=== PATIENT | female | born 1950 | race African-American/Black ===

== ENCOUNTER 2021-03-15 22:49 | Inpatient (IN) | payer OTHER ==
[2021-03-15] MEDS ORDERED: PIPERACILLIN/TAZOB 4.5 GM 4.5 GM in DEXTROSE 5%-WATER 100 ML IVPB ONE (23:39)
[2021-03-15] MEDS ORDERED: VANCOMYCIN 1 GM in D5W (PRE-DOCKED) 1,000 MG/250 ML IVPB ONE (23:40)
[2021-03-15] MEDS ORDERED: SODIUM CHLORIDE 0.9% 500 ML INFUS.BAG IV ONE (23:49)
[2021-03-16 01:08] LABS: EPI CELLS 10 /uL (0-25.1); HYALINE CASTS 1 /uL (0-3.1); PH,URINE 7.5 (5.0-8.0); URINE APPEARANCE CLOUDY; URINE BACTERIA 7 /uL (0-1359); URINE BILIRUBIN NEGATIVE (NEGATIVE); URINE COLOR DK YELLOW; URINE GLUCOSE (UA) NEGATIVE (NEGATIVE); URINE KETONE NEGATIVE (NEGATIVE); URINE LEUK ESTERASE TRACE (NEGATIVE); URINE NITRITE NEGATIVE (NEGATIVE); URINE PROTEIN TRACE (NEGATIVE); URINE RBC 13 /uL (0-23.9); URINE WBC 10 /uL (0-25.8)
[2021-03-16 01:16] LABS: VENOUS BASE EXCESS 9.9 mmol/L (-2-2); VENOUS O2 SATURATION 48.3 % (70-80); VENOUS PCO2 56.7 mmHg (38-52); VENOUS PH 7.417 (7.310-7.410)
[2021-03-16] MEDS ORDERED: PIPERACILLIN/TAZOB 4.5 GM 4.5 GM/100 ML BAG IVPB ONE (01:21)
[2021-03-16 01:22] LABS: LACTIC ACID 2.1 mmol/L (0.4-2.0)
[2021-03-16] MEDS ORDERED: VANCOMYCIN 1 GRAM (PRE-DOCKED) 1,000 MG/250 ML BAG IVPB ONE (01:22)
[2021-03-16 01:25] LABS: BASO % 0.5 % (0-2.0); EOS % 1.3 % (0-4.5); HEMATOCRIT 26.3 % (32.4-45.2); HEMOGLOBIN 8.2 GM/dL (10.7-15.3); LYMPH % 31.9 % (8-40); MCH 25.2 pg (25.7-33.7); MCHC 31.2 g/dl (32.0-36.0); MEAN PLT VOLUME 8.6 fl (7.5-11.1); MONO % 8.5 % (3.8-10.2); NEUT % 57.8 % (42.8-82.8); PLATELET COUNT 350 10^3/uL (134-434); RBC 3.24 M/mm3 (3.60-5.2); RDW 19.6 % (11.6-15.6); WHITE BLOOD COUNT 9.2 K/mm3 (4.0-10.0)
[2021-03-16 01:54] LABS: INR 1.25 (0.83-1.09); PROTHROMBIN TIME (PATIENT) 14.4 SEC (9.7-13.0)
[2021-03-16 01:57] LABS: ACTIVATED PTT 28.5 SECONDS (25.2-36.5); CHLORIDE 98 mmol/L (98-107); SODIUM 138 mmol/L (136-145)
[2021-03-16 02:00] LABS: CALCIUM 10.4 mg/dL (8.5-10.1)
[2021-03-16 02:01] LABS: ALBUMIN 2.3 g/dl (3.4-5.0); BLOOD UREA NITROGEN 25.5 mg/dL (7-18); GLUCOSE,RANDOM 91 mg/dL (74-106)
[2021-03-16 02:03] LABS: CREATININE 0.5 mg/dL (0.55-1.3); SGPT/ALT 33 U/L (13-61)
[2021-03-16 02:05] LABS: BILIRUBIN,TOTAL 0.9 mg/dL (0.2-1); SGOT/AST 35 U/L (15-37)
[2021-03-16 02:06] LABS: TOT PROT 7.7 g/dl (6.4-8.2)
[2021-03-16 02:07] LABS: ALK PHOS 106 U/L (45-117)
[2021-03-16 02:13] LABS: ANION GAP 8 MMOL/L (8-16); CO2 33 mmol/L (21-32)
[2021-03-16] MEDS ORDERED: SODIUM CHLORIDE 0.9% 500 ML INFUS.BAG IV ONE (03:34)
[2021-03-16] MEDS ORDERED: ACETAMINOPHEN 1000 MG/100 ML BAG IVPB ONE (04:16)
[2021-03-16] MEDS ORDERED: ACETAMINOPHEN INJECTION 100 ML IVPB ONE (04:38)
[2021-03-16] MEDS: METOPROLOL TARTRATE 5 MG/5 ML VIAL IVPUSH PRN ×2 (04:46→09:55)
[2021-03-16 05:11] LABS: LACTIC ACID 2.2 mmol/L (0.4-2.0)
[2021-03-16] MEDS ORDERED: METOPROLOL TARTRATE 50 MG TABLET (FP) ONE (07:04)
[2021-03-16] MEDS: METOPROLOL TARTRATE 50 MG TABLET (FP) GT SCH ×3 (07:05→23:06)
[2021-03-16 07:47] LABS: HEMATOCRIT 26.6 % (32.4-45.2); HEMOGLOBIN 8.2 GM/dL (10.7-15.3); MCH 25.1 pg (25.7-33.7); MCHC 30.7 g/dl (32.0-36.0); MEAN CELL VOLUME 81.8 fl (80-96); MEAN PLT VOLUME 8.8 fl (7.5-11.1); PLATELET COUNT 365 10^3/uL (134-434); RBC 3.25 M/mm3 (3.60-5.2); RDW 19.5 % (11.6-15.6); WHITE BLOOD COUNT 10.7 K/mm3 (4.0-10.0)
[2021-03-16 08:14] LABS: ALBUMIN 2.1 g/dl (3.4-5.0); BLOOD UREA NITROGEN 24.6 mg/dL (7-18); CREATININE 0.6 mg/dL (0.55-1.3)
[2021-03-16 08:16] LABS: BILIRUBIN,TOTAL 0.6 mg/dL (0.2-1); CALCIUM 10.3 mg/dL (8.5-10.1); TOT PROT 7.3 g/dl (6.4-8.2)
[2021-03-16] MEDS ORDERED: PIPERACILLIN/TAZOBACTAM 4.5 GM VIAL IVPB ONE ×2 (09:42→17:36)
[2021-03-16] MEDS ORDERED: DEXTROSE 5%-WATER 100 ML IVPB ONE ×2 (09:43→17:36)
[2021-03-16] MEDS: HEPARIN NA (PORCINE) 5,000 UNITS/ML 1ML VIAL SQ SCH ×2 (09:56→23:05)
[2021-03-16] MEDS: ASCORBIC ACID 500 MG TABLET (FP) GT SCH ×2 (09:57→23:06)
[2021-03-16] MEDS: FOLIC ACID 1 MG TABLET (FP) GT SCH (09:57)
[2021-03-16] MEDS: FAMOTIDINE 40 MG/5 ML ORAL SUSPENSION PEG SCH (09:58)
[2021-03-16] MEDS ORDERED: PIPERACILLIN/TAZOB 4.5 GM 4.5 GM in DEXTROSE 5%-WATER 100 ML IVPB SCH (10:00)
[2021-03-16 10:13] LABS: ANISOCYTOSIS 1+; OVALOCYTE 1+; PLATELET ESTIMATE NORMAL
[2021-03-16] MEDS ORDERED: ACETAMINOPHEN 650 MG/20.3 ML ORAL SOLUTION (CUPS) GT PRN (11:00)
[2021-03-16] MEDS: VANCOMYCIN 1 GRAM (PRE-DOCKED) 1,000 MG/250 ML BAG IVPB SCH ×2 (12:47→23:06)
[2021-03-16] MEDS ORDERED: VANCOMYCIN/WATER BAGS 1,250 MG/250 ML BAG IVPB SCH (14:00)
[2021-03-16] MEDS: SODIUM CHLORIDE 0.45% 1,000 ML IV SCH (15:09)
[2021-03-16] MEDS ORDERED: DIGOXIN 0.5 MG/2 ML AMPUL IVPUSH ONE (15:54)
[2021-03-16] MEDS: PIPERACILLIN/TAZOB 4.5 GM 4.5 GM in DEXTROSE 5%-WATER 100 ML IVPB SCH (17:40)
[2021-03-16] MEDS: ATORVASTATIN CA 40 MG TABLET (FP) GT SCH (23:06)
[2021-03-17] MEDS ORDERED: DEXTROSE 5%-WATER 100 ML IVPB ONE ×3 (01:28→18:13)
[2021-03-17] MEDS ORDERED: PIPERACILLIN/TAZOBACTAM 4.5 GM VIAL IVPB ONE ×3 (01:28→18:13)
[2021-03-17] MEDS: PIPERACILLIN/TAZOB 4.5 GM 4.5 GM in DEXTROSE 5%-WATER 100 ML IVPB SCH ×3 (01:36→18:40)
[2021-03-17] MEDS: METOPROLOL TARTRATE 50 MG TABLET (FP) GT SCH ×3 (06:43→21:32)
[2021-03-17] MEDS: HEPARIN NA (PORCINE) 5,000 UNITS/ML 1ML VIAL SQ SCH ×2 (09:21→21:11)
[2021-03-17] MEDS: FOLIC ACID 1 MG TABLET (FP) GT SCH (09:21)
[2021-03-17] MEDS: FAMOTIDINE 40 MG/5 ML ORAL SUSPENSION PEG SCH (09:21)
[2021-03-17] MEDS: ASCORBIC ACID 500 MG TABLET (FP) GT SCH ×2 (09:21→21:11)
[2021-03-17] MEDS ORDERED: PIPERACILLIN/TAZOB 4.5 GM 4.5 GM in DEXTROSE 5%-WATER 100 ML IVPB SCH (10:00)
[2021-03-17] MEDS ORDERED: DIGOXIN 0.5 MG/2 ML AMPUL IVPUSH ONE (11:00)
[2021-03-17] MEDS: VANCOMYCIN 1 GRAM (PRE-DOCKED) 1,000 MG/250 ML BAG IVPB SCH ×2 (12:17→23:37)
[2021-03-17] MEDS ORDERED: VANCOMYCIN/WATER BAGS 1,250 MG/250 ML BAG IVPB SCH (14:00)
[2021-03-17] MEDS: SODIUM CHLORIDE 0.45% 1,000 ML IV SCH (15:58)
[2021-03-17 19:08] LABS: BASO % 0.3 % (0-2.0); EOS % 0.7 % (0-4.5); HEMATOCRIT 23.3 % (32.4-45.2); HEMOGLOBIN 7.2 GM/dL (10.7-15.3); LYMPH % 14.8 % (8-40); MCH 24.5 pg (25.7-33.7); MCHC 30.8 g/dl (32.0-36.0); MEAN CELL VOLUME 79.4 fl (80-96); MEAN PLT VOLUME 7.7 fl (7.5-11.1); MONO % 5.5 % (3.8-10.2); NEUT % 78.7 % (42.8-82.8); PLATELET COUNT 401 10^3/uL (134-434); RBC 2.94 M/mm3 (3.60-5.2); RDW 19.3 % (11.6-15.6); WHITE BLOOD COUNT 12.2 K/mm3 (4.0-10.0)
[2021-03-17 19:39] LABS: ALBUMIN 1.8 g/dl (3.4-5.0); BLOOD UREA NITROGEN 19.9 mg/dL (7-18); CALCIUM 9.4 mg/dL (8.5-10.1)
[2021-03-17 19:44] LABS: BILIRUBIN,TOTAL 0.7 mg/dL (0.2-1); CREATININE 0.6 mg/dL (0.55-1.3); TOT PROT 6.6 g/dl (6.4-8.2)
[2021-03-17] MEDS: ATORVASTATIN CA 40 MG TABLET (FP) GT SCH (21:11)
[2021-03-18] MEDS ORDERED: PIPERACILLIN/TAZOBACTAM 4.5 GM VIAL IVPB ONE ×3 (04:05→18:09)
[2021-03-18] MEDS ORDERED: DEXTROSE 5%-WATER 100 ML IVPB ONE ×3 (04:06→18:09)
[2021-03-18] MEDS: PIPERACILLIN/TAZOB 4.5 GM 4.5 GM in DEXTROSE 5%-WATER 100 ML IVPB SCH ×3 (04:10→18:12)
[2021-03-18] MEDS: METOPROLOL TARTRATE 50 MG TABLET (FP) GT SCH ×3 (06:23→22:29)
[2021-03-18 08:08] LABS: BASO % 0.5 % (0-2.0); EOS % 2.7 % (0-4.5); HEMOGLOBIN 7.7 GM/dL (10.7-15.3); MCHC 30.7 g/dl (32.0-36.0); MEAN CELL VOLUME 81.3 fl (80-96); MEAN PLT VOLUME 8.5 fl (7.5-11.1); MONO % 8.8 % (3.8-10.2); PLATELET COUNT 349 10^3/uL (134-434); RBC 3.08 M/mm3 (3.60-5.2); RDW 19.2 % (11.6-15.6); WHITE BLOOD COUNT 8.3 K/mm3 (4.0-10.0)
[2021-03-18 08:30] LABS: ALBUMIN 1.8 g/dl (3.4-5.0); BLOOD UREA NITROGEN 18.9 mg/dL (7-18); CALCIUM 9.3 mg/dL (8.5-10.1)
[2021-03-18 08:33] LABS: CREATININE 0.6 mg/dL (0.55-1.3)
[2021-03-18 08:36] LABS: BILIRUBIN,TOTAL 0.6 mg/dL (0.2-1); TOT PROT 6.6 g/dl (6.4-8.2)
[2021-03-18] MEDS: DIGOXIN 0.125 MG TABLET PO SCH ×2 (10:00→10:45)
[2021-03-18] MEDS: KCL 10 MEQ IVPB 10 MEQ/100 ML INFUS.BAG IVPB SCH ×2 (10:07→12:00)
[2021-03-18] MEDS: FOLIC ACID 1 MG TABLET (FP) GT SCH (10:24)
[2021-03-18] MEDS: HEPARIN NA (PORCINE) 5,000 UNITS/ML 1ML VIAL SQ SCH ×2 (10:24→22:28)
[2021-03-18] MEDS: FAMOTIDINE 40 MG/5 ML ORAL SUSPENSION PEG SCH (10:26)
[2021-03-18] MEDS: ASCORBIC ACID 500 MG TABLET (FP) GT SCH ×2 (10:27→22:29)
[2021-03-18] MEDS: VANCOMYCIN 1 GRAM (PRE-DOCKED) 1,000 MG/250 ML BAG IVPB SCH ×2 (12:44→23:24)
[2021-03-18 14:55] VITALS: BMI 30.3
[2021-03-18] MEDS ORDERED: POTASSIUM CHLORIDE ORAL LIQUID 20 MEQ/15 ML PO ONE (15:22)
[2021-03-18] MEDS: AMINO ACIDS/PROTEIN HYDROLYS 30 ML LIQUID.PKT PO SCH (18:12)
[2021-03-18] MEDS: COLLAGENASE CLOSTRIDIUM HIST. 30 GRAMS TUBE TP SCH (18:12)
[2021-03-18] MEDS: ATORVASTATIN CA 40 MG TABLET (FP) GT SCH (22:28)
[2021-03-19] MEDS ORDERED: PIPERACILLIN/TAZOBACTAM 4.5 GM VIAL IVPB ONE ×3 (02:01→16:01)
[2021-03-19] MEDS ORDERED: DEXTROSE 5%-WATER 100 ML IVPB ONE ×3 (02:01→16:02)
[2021-03-19] MEDS: PIPERACILLIN/TAZOB 4.5 GM 4.5 GM in DEXTROSE 5%-WATER 100 ML IVPB SCH ×3 (02:18→17:45)
[2021-03-19] MEDS: METOPROLOL TARTRATE 50 MG TABLET (FP) GT SCH ×3 (07:27→21:01)
[2021-03-19] MEDS: AMINO ACIDS/PROTEIN HYDROLYS 30 ML LIQUID.PKT PO SCH ×2 (09:47→17:45)
[2021-03-19] MEDS: FOLIC ACID 1 MG TABLET (FP) GT SCH (09:48)
[2021-03-19] MEDS: HEPARIN NA (PORCINE) 5,000 UNITS/ML 1ML VIAL SQ SCH ×2 (09:48→21:03)
[2021-03-19] MEDS: FAMOTIDINE 40 MG/5 ML ORAL SUSPENSION PEG SCH (09:48)
[2021-03-19] MEDS: DIGOXIN 250 MCG/5 ML LIQUID PO SCH (09:49)
[2021-03-19] MEDS: ASCORBIC ACID 500 MG TABLET (FP) GT SCH ×2 (09:49→21:02)
[2021-03-19] MEDS: COLLAGENASE CLOSTRIDIUM HIST. 30 GRAMS TUBE TP SCH (09:50)
[2021-03-19] MEDS: VANCOMYCIN 1 GRAM (PRE-DOCKED) 1,000 MG/250 ML BAG IVPB SCH ×2 (11:45→22:34)
[2021-03-19] MEDS: ATORVASTATIN CA 40 MG TABLET (FP) GT SCH (21:02)
[2021-03-20] MEDS ORDERED: PIPERACILLIN/TAZOBACTAM 4.5 GM VIAL IVPB ONE ×3 (01:01→16:51)
[2021-03-20] MEDS ORDERED: DEXTROSE 5%-WATER 100 ML IVPB ONE ×3 (01:01→16:51)
[2021-03-20] MEDS: PIPERACILLIN/TAZOB 4.5 GM 4.5 GM in DEXTROSE 5%-WATER 100 ML IVPB SCH ×3 (01:07→17:05)
[2021-03-20] MEDS: METOPROLOL TARTRATE 50 MG TABLET (FP) GT SCH ×3 (05:47→21:30)
[2021-03-20 06:49] LABS: BASO % 0.5 % (0-2.0); EOS % 2.2 % (0-4.5); HEMATOCRIT 25.2 % (32.4-45.2); HEMOGLOBIN 7.7 GM/dL (10.7-15.3); LYMPH % 35.9 % (8-40); MCH 24.9 pg (25.7-33.7); MCHC 30.6 g/dl (32.0-36.0); MEAN CELL VOLUME 81.4 fl (80-96); MEAN PLT VOLUME 8.3 fl (7.5-11.1); NEUT % 53.4 % (42.8-82.8); PLATELET COUNT 423 10^3/uL (134-434); RDW 19.3 % (11.6-15.6); WHITE BLOOD COUNT 9.7 K/mm3 (4.0-10.0)
[2021-03-20 07:14] LABS: CALCIUM 9.1 mg/dL (8.5-10.1)
[2021-03-20 07:15] LABS: ALBUMIN 1.9 g/dl (3.4-5.0); BLOOD UREA NITROGEN 17.6 mg/dL (7-18)
[2021-03-20 07:18] LABS: CREATININE 0.6 mg/dL (0.55-1.3)
[2021-03-20 07:19] LABS: BILIRUBIN,TOTAL 0.3 mg/dL (0.2-1); TOT PROT 6.6 g/dl (6.4-8.2)
[2021-03-20] MEDS ORDERED: POTASSIUM CHLORIDE ORAL LIQUID 20 MEQ/15 ML GT ONE (10:10)
[2021-03-20] MEDS: HEPARIN NA (PORCINE) 5,000 UNITS/ML 1ML VIAL SQ SCH ×2 (10:18→21:30)
[2021-03-20] MEDS: FAMOTIDINE 40 MG/5 ML ORAL SUSPENSION PEG SCH (10:22)
[2021-03-20] MEDS: AMINO ACIDS/PROTEIN HYDROLYS 30 ML LIQUID.PKT PO SCH ×2 (10:22→16:54)
[2021-03-20] MEDS: ASCORBIC ACID 500 MG TABLET (FP) GT SCH ×2 (10:22→21:31)
[2021-03-20] MEDS: DIGOXIN 250 MCG/5 ML LIQUID PO SCH (10:23)
[2021-03-20] MEDS: FOLIC ACID 1 MG TABLET (FP) GT SCH (10:23)
[2021-03-20] MEDS: COLLAGENASE CLOSTRIDIUM HIST. 30 GRAMS TUBE TP SCH (14:00)
[2021-03-20] MEDS: ATORVASTATIN CA 40 MG TABLET (FP) GT SCH (21:30)
[2021-03-21] MEDS ORDERED: PIPERACILLIN/TAZOBACTAM 4.5 GM VIAL IVPB ONE ×4 (00:15→16:05)
[2021-03-21] MEDS ORDERED: DEXTROSE 5%-WATER 100 ML IVPB ONE ×4 (00:16→16:06)
[2021-03-21] MEDS: PIPERACILLIN/TAZOB 4.5 GM 4.5 GM in DEXTROSE 5%-WATER 100 ML IVPB SCH ×3 (00:59→17:52)
[2021-03-21] MEDS: METOPROLOL TARTRATE 50 MG TABLET (FP) GT SCH ×3 (05:32→21:06)
[2021-03-21 07:18] LABS: HEMATOCRIT 23.8 % (32.4-45.2); HEMOGLOBIN 7.4 GM/dL (10.7-15.3); MCH 25.2 pg (25.7-33.7); MCHC 31.1 g/dl (32.0-36.0); MEAN PLT VOLUME 7.9 fl (7.5-11.1); PLATELET COUNT 424 10^3/uL (134-434); RBC 2.93 M/mm3 (3.60-5.2); RDW 19.1 % (11.6-15.6); WHITE BLOOD COUNT 8.5 K/mm3 (4.0-10.0)
[2021-03-21 07:54] LABS: BLOOD UREA NITROGEN 20.5 mg/dL (7-18); CALCIUM 9.2 mg/dL (8.5-10.1)
[2021-03-21 07:57] LABS: PHOSPHOROUS 3.7 mg/dL (2.5-4.9)
[2021-03-21 07:58] LABS: CREATININE 0.6 mg/dL (0.55-1.3)
[2021-03-21] MEDS: HEPARIN NA (PORCINE) 5,000 UNITS/ML 1ML VIAL SQ SCH ×2 (11:01→21:04)
[2021-03-21] MEDS: AMINO ACIDS/PROTEIN HYDROLYS 30 ML LIQUID.PKT PO SCH ×2 (11:01→17:52)
[2021-03-21] MEDS: FOLIC ACID 1 MG TABLET (FP) GT SCH (11:01)
[2021-03-21] MEDS: COLLAGENASE CLOSTRIDIUM HIST. 30 GRAMS TUBE TP SCH (11:03)
[2021-03-21] MEDS: DIGOXIN 250 MCG/5 ML LIQUID PO SCH (11:03)
[2021-03-21] MEDS: ASCORBIC ACID 500 MG TABLET (FP) GT SCH ×2 (11:03→21:05)
[2021-03-21] MEDS: FAMOTIDINE 40 MG/5 ML ORAL SUSPENSION PEG SCH (11:03)
[2021-03-21] MEDS: ATORVASTATIN CA 40 MG TABLET (FP) GT SCH (21:05)
[2021-03-22] MEDS ORDERED: PIPERACILLIN/TAZOBACTAM 4.5 GM VIAL IVPB ONE ×3 (01:35→17:17)
[2021-03-22] MEDS ORDERED: DEXTROSE 5%-WATER 100 ML IVPB ONE ×3 (01:35→17:17)
[2021-03-22] MEDS: PIPERACILLIN/TAZOB 4.5 GM 4.5 GM in DEXTROSE 5%-WATER 100 ML IVPB SCH ×3 (02:14→17:41)
[2021-03-22] MEDS: METOPROLOL TARTRATE 50 MG TABLET (FP) GT SCH ×3 (06:06→21:22)
[2021-03-22 07:23] LABS: HEMATOCRIT 23.8 % (32.4-45.2); HEMOGLOBIN 7.3 GM/dL (10.7-15.3); MCH 24.8 pg (25.7-33.7); MCHC 30.5 g/dl (32.0-36.0); MEAN CELL VOLUME 81.3 fl (80-96); MEAN PLT VOLUME 7.8 fl (7.5-11.1); PLATELET COUNT 482 10^3/uL (134-434); RBC 2.93 M/mm3 (3.60-5.2); RDW 19.3 % (11.6-15.6); WHITE BLOOD COUNT 9.1 K/mm3 (4.0-10.0)
[2021-03-22 07:55] LABS: CALCIUM 9.4 mg/dL (8.5-10.1)
[2021-03-22 07:56] LABS: ALBUMIN 1.8 g/dl (3.4-5.0); MAGNESIUM 1.9 mg/dL (1.8-2.4)
[2021-03-22 07:59] LABS: CREATININE 0.5 mg/dL (0.55-1.3)
[2021-03-22 08:00] LABS: BILIRUBIN,TOTAL 0.3 mg/dL (0.2-1)
[2021-03-22 08:01] LABS: TOT PROT 6.6 g/dl (6.4-8.2)
[2021-03-22] MEDS: AMINO ACIDS/PROTEIN HYDROLYS 30 ML LIQUID.PKT PO SCH ×2 (09:00→17:41)
[2021-03-22] MEDS ORDERED: IRON SUCROSE INJECTION 200 MG in SODIUM CHLORIDE 90 ML IVPB ONE (10:00)
[2021-03-22] MEDS: ASCORBIC ACID 500 MG TABLET (FP) GT SCH ×2 (10:09→21:22)
[2021-03-22] MEDS: FOLIC ACID 1 MG TABLET (FP) GT SCH (10:10)
[2021-03-22] MEDS: HEPARIN NA (PORCINE) 5,000 UNITS/ML 1ML VIAL SQ SCH ×2 (10:10→21:21)
[2021-03-22] MEDS: FAMOTIDINE 40 MG/5 ML ORAL SUSPENSION PEG SCH (10:14)
[2021-03-22] MEDS: DIGOXIN 250 MCG/5 ML LIQUID PO SCH (10:33)
[2021-03-22] MEDS: COLLAGENASE CLOSTRIDIUM HIST. 30 GRAMS TUBE TP SCH (11:12)
[2021-03-22] MEDS ORDERED: ALBUTEROL SO4 0.083% IH SOL 2.5 MG/3 ML VIAL.NEB. NEB ONE (16:59)
[2021-03-22] MEDS ORDERED: ACETYLCYSTEINE 20% 200MG/ML 4 ML VIAL *FOR ORAL / INH USE ONLY NEB ONE (16:59)
[2021-03-22] MEDS: ATORVASTATIN CA 40 MG TABLET (FP) GT SCH (21:22)
[2021-03-23] MEDS ORDERED: PIPERACILLIN/TAZOBACTAM 4.5 GM VIAL IVPB ONE ×2 (01:18→09:51)
[2021-03-23] MEDS ORDERED: DEXTROSE 5%-WATER 100 ML IVPB ONE ×2 (01:19→09:51)
[2021-03-23] MEDS: PIPERACILLIN/TAZOB 4.5 GM 4.5 GM in DEXTROSE 5%-WATER 100 ML IVPB SCH ×2 (02:36→10:17)
[2021-03-23] MEDS: METOPROLOL TARTRATE 50 MG TABLET (FP) GT SCH ×3 (05:38→23:09)
[2021-03-23 07:48] LABS: CALCIUM 9.9 mg/dL (8.5-10.1)
[2021-03-23 07:49] LABS: BLOOD UREA NITROGEN 22.4 mg/dL (7-18)
[2021-03-23 07:50] LABS: BASO % 0.4 % (0-2.0); EOS % 3.6 % (0-4.5); HEMATOCRIT 26.6 % (32.4-45.2); LYMPH % 32.1 % (8-40); MCH 24.6 pg (25.7-33.7); MEAN PLT VOLUME 8.1 fl (7.5-11.1); MONO % 7.6 % (3.8-10.2); NEUT % 56.3 % (42.8-82.8); PLATELET COUNT 511 10^3/uL (134-434); RBC 3.24 M/mm3 (3.60-5.2); RDW 19.1 % (11.6-15.6); WHITE BLOOD COUNT 11.4 K/mm3 (4.0-10.0)
[2021-03-23 07:51] LABS: CREATININE 0.6 mg/dL (0.55-1.3)
[2021-03-23 07:53] LABS: BILIRUBIN,TOTAL 0.3 mg/dL (0.2-1); TOT PROT 7.2 g/dl (6.4-8.2)
[2021-03-23] MEDS: AMINO ACIDS/PROTEIN HYDROLYS 30 ML LIQUID.PKT PO SCH ×2 (08:00→17:23)
[2021-03-23] MEDS: COLLAGENASE CLOSTRIDIUM HIST. 30 GRAMS TUBE TP SCH (10:18)
[2021-03-23] MEDS: ASCORBIC ACID 500 MG TABLET (FP) GT SCH ×2 (10:18→23:09)
[2021-03-23] MEDS: FOLIC ACID 1 MG TABLET (FP) GT SCH (10:18)
[2021-03-23] MEDS: DIGOXIN 250 MCG/5 ML LIQUID PO SCH (11:40)
[2021-03-23] MEDS: FAMOTIDINE 40 MG/5 ML ORAL SUSPENSION PEG SCH (11:40)
[2021-03-23] MEDS: ATORVASTATIN CA 40 MG TABLET (FP) GT SCH (23:09)
[2021-03-24] MEDS: METOPROLOL TARTRATE 50 MG TABLET (FP) GT SCH ×3 (06:57→22:00)
[2021-03-24] MEDS: DIGOXIN 250 MCG/5 ML LIQUID PO SCH (08:59)
[2021-03-24] MEDS: COLLAGENASE CLOSTRIDIUM HIST. 30 GRAMS TUBE TP SCH (08:59)
[2021-03-24] MEDS: AMINO ACIDS/PROTEIN HYDROLYS 30 ML LIQUID.PKT PO SCH ×2 (08:59→17:53)
[2021-03-24] MEDS: FAMOTIDINE 40 MG/5 ML ORAL SUSPENSION PEG SCH (08:59)
[2021-03-24] MEDS: FOLIC ACID 1 MG TABLET (FP) GT SCH (08:59)
[2021-03-24] MEDS: ASCORBIC ACID 500 MG TABLET (FP) GT SCH ×2 (09:00→22:01)
[2021-03-24] MEDS: ATORVASTATIN CA 40 MG TABLET (FP) GT SCH (22:01)
[2021-03-25] MEDS: METOPROLOL TARTRATE 50 MG TABLET (FP) GT SCH ×3 (06:39→21:55)
[2021-03-25 07:36] LABS: BASO % 0.6 % (0-2.0); EOS % 3.2 % (0-4.5); HEMATOCRIT 26.5 % (32.4-45.2); LYMPH % 31.5 % (8-40); MCH 25.5 pg (25.7-33.7); MCHC 30.1 g/dl (32.0-36.0); MEAN CELL VOLUME 84.8 fl (80-96); MONO % 8.1 % (3.8-10.2); NEUT % 56.6 % (42.8-82.8); PLATELET COUNT 252 10^3/uL (134-434); RBC 3.12 M/mm3 (3.60-5.2); RDW 20.1 % (11.6-15.6); WHITE BLOOD COUNT 7.8 K/mm3 (4.0-10.0)
[2021-03-25 07:41] LABS: ALBUMIN 1.9 g/dl (3.4-5.0); BLOOD UREA NITROGEN 21.7 mg/dL (7-18)
[2021-03-25 07:44] LABS: CREATININE 0.6 mg/dL (0.55-1.3)
[2021-03-25 07:46] LABS: BILIRUBIN,TOTAL 0.3 mg/dL (0.2-1); TOT PROT 6.7 g/dl (6.4-8.2)
[2021-03-25] MEDS: AMINO ACIDS/PROTEIN HYDROLYS 30 ML LIQUID.PKT PO SCH ×2 (08:33→17:41)
[2021-03-25] MEDS: FOLIC ACID 1 MG TABLET (FP) GT SCH (09:16)
[2021-03-25] MEDS: ASCORBIC ACID 500 MG TABLET (FP) GT SCH ×2 (09:16→21:55)
[2021-03-25] MEDS: FAMOTIDINE 40 MG/5 ML ORAL SUSPENSION PEG SCH (09:16)
[2021-03-25] MEDS: COLLAGENASE CLOSTRIDIUM HIST. 30 GRAMS TUBE TP SCH (09:16)
[2021-03-25] MEDS: DIGOXIN 250 MCG/5 ML LIQUID PO SCH (09:16)
[2021-03-25] MEDS ORDERED: SCOPOLAMINE HYDROBROMIDE 1 PATCH PATCH.TD72 TD SCH (13:15)
[2021-03-25] MEDS: ATORVASTATIN CA 40 MG TABLET (FP) GT SCH (21:55)
[2021-03-26] MEDS: METOPROLOL TARTRATE 50 MG TABLET (FP) GT SCH ×2 (07:09→16:00)
[2021-03-26] MEDS: COLLAGENASE CLOSTRIDIUM HIST. 30 GRAMS TUBE TP SCH (09:45)
[2021-03-26] MEDS: AMINO ACIDS/PROTEIN HYDROLYS 30 ML LIQUID.PKT PO SCH (09:45)
[2021-03-26] MEDS: FOLIC ACID 1 MG TABLET (FP) GT SCH (09:45)
[2021-03-26] MEDS: ASCORBIC ACID 500 MG TABLET (FP) GT SCH (09:45)
[2021-03-26] MEDS: DIGOXIN 250 MCG/5 ML LIQUID PO SCH (09:48)
[2021-03-26] MEDS: FAMOTIDINE 40 MG/5 ML ORAL SUSPENSION PEG SCH (09:48)
[2021-03-26 14:18] VITALS: TEMP 98
[2021-03-26 17:34] VITALS: BP 140/83; PULSE 87
== END 2021-03-26 18:18 | DRG 870 ==
LOC: JER 22:49 → JERBED 03-16 03:41 → J2W 03-16 08:52
PROVIDERS: ADMIT Internal Medicine; ATTEND Family Medicine
PROC: 5A1955Z Respiratory Ventilation, Greater than 96 Consecutive Hours (ICD-10-PCS; principal; 2021-03-15)
DX: A41.9 Sepsis, unspecified organism (principal); L89.314 Pressure ulcer of right buttock, stage 4; J18.9 Pneumonia, unspecified organism; G82.50 Quadriplegia, unspecified; J96.12 Chronic respiratory failure with hypercapnia; I48.19 Other persistent atrial fibrillation; E87.2 Acidosis; J98.11 Atelectasis; J44.0 Chronic obstructive pulmonary disease with (acute) lower respiratory infection; Z99.11 Dependence on respirator [ventilator] status; Z93.0 Tracheostomy status; D64.9 Anemia, unspecified; E83.52 Hypercalcemia; E78.5 Hyperlipidemia, unspecified; E87.6 Hypokalemia; E88.09 Other disorders of plasma-protein metabolism, not elsewhere classified
CPT/HCPCS: 36415; 71045-TC-FY; 80048; 80053; 81003; 82272; 82306; 82310; 82728; 82803; 83540; 83550; 83605; 83735; 83970; 84100; 84443; 84484; 85025; 85027; 85610; 85730; 86850; 86900; 86901; 87040; 87070; 87077; 87086; 87186; 87205; 87804; 87899; 93005; 93010; 94002; 94640; 99291; 99292; C9803; J0131; J1644; J1756; U0003; U0005